=== PATIENT | female | born 1960 ===

== ENCOUNTER → 2018-03-25 06:55 | Outpatient (CLI) | payer OTHER ==
[~2018-03-25 06:55] MED LIST: ATENOLOL50 MG PO
== END | disposition home or self-care (01) ==
LOC: EKG 06:55
DX: N85.01 Benign endometrial hyperplasia (principal)

== ENCOUNTER 2018-03-25 11:42 | Inpatient (IN) | payer OTHER ==
[~2018-03-25] VITALS: Ht 154.9 cm; Wt 113.4 kg
[2018-03-29] MEDS ORDERED: ULTRAM50 MG PO (08:54)
[2018-03-29] MEDS ORDERED: DOCUSATE SODIU100 MG PO (08:54)
== END 2018-03-29 11:03 | disposition home or self-care (01) | DRG 735 ==
LOC: O/R 03-28 06:20 → RECOVERY 03-28 13:00 → OB/GYN 03-28 14:53 → RECOVERY 03-28 21:15 → OB/GYN 03-29 11:03
PROVIDERS: Obstetrics & Gynecology; Obstetrics & Gynecology Gynecologic Oncology
PROC: 0UT74ZZ Resection of Bilateral Fallopian Tubes, Percutaneous Endoscopic Approach (ICD-10-PCS; 2018-03-28)
PROC: 0UT24ZZ Resection of Bilateral Ovaries, Percutaneous Endoscopic Approach (ICD-10-PCS; 2018-03-28)
PROC: 0USG4ZZ Reposition Vagina, Percutaneous Endoscopic Approach (ICD-10-PCS; 2018-03-28)
PROC: 0UT94ZZ Resection of Uterus, Percutaneous Endoscopic Approach (ICD-10-PCS; principal; 2018-03-28 21:15)
PROC: 07TC4ZZ Resection of Pelvis Lymphatic, Percutaneous Endoscopic Approach (ICD-10-PCS; 2018-03-28 21:15)
DX: N85.02 Endometrial intraepithelial neoplasia [EIN] (principal); N72 Inflammatory disease of cervix uteri; N80.0 Endometriosis of uterus; I10 Essential (primary) hypertension